=== PATIENT | female | born 1955 | race African-American/Black ===

== ENCOUNTER 2017-03-12 04:12 | Emergency (ER) | payer BC ==
[~2017-03-12] VITALS: Ht 167.6 cm; Wt 86.0 kg
[~2017-03-12 04:12] MED LIST: AMLODIPINE BESY10 MG PO; ANTIVERT25 MG PO; CIPRO500 MG PO; FURO40I IV; HYDRALAZINE HCL50 MG PO; LASIX40 MG PO; LISINOPRIL20 MG PO; LOPRESSOR50 MG PO; LOSARTAN POTASS50 MG PO; NORVASC10 MG PO; TYLENOL EXTRA500 MG PO; ZOFRAN ODT4 MG PO
[2017-03-12 04:33] LABS: HEMATOCRIT 39.5 % (36.0-46.0); MCH 29.2 PG (29.0-34.0); MCHC 33.4 G/DL (30.0-36.0); MCV 87.4 FL (83-99); MEAN PLAT.VOLUME 10.1 uM^3 (9.5-12.4); PLATELET COUNT 335 K/uL (156-360); RBC DIS.WIDTH-CV 13.1 % (11.8-14.6); RBC DIS.WIDTH-SD 41.2 % (39-53); RED BLOOD COUNT 4.52 M/uL (3.80-5.20)
[2017-03-12 04:43] LABS: CHLORIDE 105 mEq/L (99-109); POTASSIUM 4.2 mEq/L (3.7-5.4); SODIUM 138 mEq/L (136-147)
[2017-03-12 04:45] LABS: GLUCOSE 113 mg/dL (70-99)
[2017-03-12 04:47] LABS: ANION GAP 10 MEQ/L (2-14)
[2017-03-12 04:49] LABS: GFR ESTIMATE (CALCULATED) > 59 mL/min/
[2017-03-12 04:50] LABS: UREA NITROGEN (BUN) 13 mg/dL (9-23)
[2017-03-12 05:15] LABS: TROP-I INTERPRETATION NEGATIVE; TROPONIN-I < 0.01 ng/mL (0.0-0.30)
[2017-03-12 07:37] LABS: TROP-I INTERPRETATION NEGATIVE; TROPONIN-I < 0.01 ng/mL (0.0-0.30)
[2017-03-12] MEDS ORDERED: ZITHROMAX Z-PA250 MG PO (07:46)
[2017-03-12] MEDS ORDERED: PREDNISONE50 MG PO (07:46)
[2017-03-12] MEDS ORDERED: PROVENTIL HFA6.7 GM IH (07:46)
[2017-03-12 07:59] VITALS: BP 171/92
== END 2017-03-12 07:55 | disposition home or self-care (01) ==
LOC: EME 04:12
PROVIDERS: Emergency Medicine
DX: J45.901 Unspecified asthma with (acute) exacerbation (principal); I10 Essential (primary) hypertension
CPT/HCPCS: 71020; 80048; 83880; 84484; 85027; 93005; 94640; 99281; 99284; J7512